=== PATIENT | female | born 1990 | race Two or more races ===

== ENCOUNTER 2016-06-07 11:44 | Inpatient (IN) | payer MEDICAID ==
[~2016-06-07] VITALS: Ht 154.9 cm; Wt 110.5 kg
--- NOTE | ~2016-06-07 | OR ---
PATIENT'S NAME: MI CRUZHANIE [facility] AGE: 26 Y [address] ROOM: [place] [address] LOCATION: GOBS ADMIT DATE: 06/07/2016 OR/Procedure Report DISCHARGE DATE: FAMILY PHYSICIAN: Lynette Herrera MD ATTENDING PHYSICIAN: Lynette Herrera SURGEON: Aaron Tolliver MD HONING MACHINE OPERATOR SEMIAUTOMATIC: DATE OF PROCEDURE: 06/07/2016 PROCEDURE PERFORMED: Normal spontaneous vaginal delivery with spontaneous rupture of membranes. ANESTHESIA: Just IV Sublimaze as needed. ESTIMATED BLOOD LOSS: 300 mL. COMPLICATIONS: None. Sponge and needle counts correct. NARRATIVE: The patient is a 26-year-old, 2, para 1 female who presented to my office with some intermittent contractions and leaking fluid since 9:30 am this morning. At the office, she was confirmed to be ruptured with a positive Nitrazine and positive pooling. She was GBS positive, so she was sent over to the hospital. The rest of her labs show the patient is O positive. Antibody screen negative. Rubella nonimmune. RPR nonreactive. Hepatitis B surface antigen negative, HIV negative. Urine drug screen, Gyne 3, and GC chlamydia all negative. The patient has had an uncomplicated . As I mentioned, she presented and had spontaneous rupture of membranes. She was sent over here. She did receive two doses of IV antibiotics. Her heart tones have been good. The patient progressed rapidly. Initially, did not want an epidural and then later on asked for one, but unfortunately it was moving too fast. We did not have anybody available, so she delivered without. She had received some Sublimaze. She had normal spontaneous vaginal delivery with actually just some mild Pitocin augmentation. Baby delivered occiput anterior. Anterior and posterior shoulders followed without difficulties and the rest of the baby followed. The cord was clamped and dad was allowed to cut the cord, and baby was placed on mom's abdomen. Attention turned back to mom and we just obtained venous blood for testing. Coag gases were not done as everything looked good. Cervix was visualized. It was intact as were vaginal sidewalls, perineum, and periurethral areas other than just some mild abrasion. Both mother and baby were in good condition. Sponge and needle counts were correct. PATIENT'S NAME: MI CRUZHANIE [facility] AGE: 26 Y [address] ROOM: [facility] [place], [place] [address] LOCATION: GOBS ADMIT DATE: 06/07/2016 OR/Procedure Report DISCHARGE DATE: FAMILY PHYSICIAN: Lynette Herrera MD ATTENDING PHYSICIAN: Lynette Herrera JAMIEMD RENEA MONTANEZ/modbrannon /[id number] d: 06/08/16 0019 t: 06/23/16 1500, OPERATIVE SUMMARY
[2016-06-07 12:52] LABS: BASOPHIL % 0.4 %; EOSINOPHIL % 0.4 %; HEMATOCRIT 32.6 % (33.0-46.0); HEMOGLOBIN 10.8 g/dL (11.0-15.0); IMMATURE GRANULOCYTE % 0.4 %; LYMPHOCYTE # 1.2 K/uL (0.8-4.0); LYMPHOCYTE % 15.1 %; MCH 30.6 pg (27.0-34.0); MCHC 33.1 gm/dL (32.0-36.5); MCV 92.4 fl (83.0-98.0); MONOCYTE # 0.4 K/uL (0.0-1.0); MONOCYTE % 4.7 %; NEUTROPHIL # (ANC) 6.5 K/uL (1.8-7.8); NRBC % 0 /100WBC (0-0.00); PLATELET COUNT 259 K/uL (150-450); RBC 3.53 M/uL (3.50-5.00); RDW-CV 13.9 % (11.9-14.6); WBC 8.2 K/uL (4.0-11.0)
[2016-06-07] MEDS ORDERED: PRENATAL 1+1)(P1 TAB PO (13:46)
[2016-06-07 22:16] LABS: BASOPHIL % 0.2 %; EOSINOPHIL % 0.1 %; HEMATOCRIT 27.8 % (33.0-46.0); HEMOGLOBIN 9.3 g/dL (11.0-15.0); IMMATURE GRANULOCYTE % 0.3 %; LYMPHOCYTE # 0.8 K/uL (0.8-4.0); LYMPHOCYTE % 6.3 %; MCH 31.2 pg (27.0-34.0); MCHC 33.5 gm/dL (32.0-36.5); MCV 93.3 fl (83.0-98.0); MONOCYTE # 0.6 K/uL (0.0-1.0); MONOCYTE % 4.5 %; MPV 10.4 fl (9.4-12.4); NEUTROPHIL # (ANC) 11.3 K/uL (1.8-7.8); NEUTROPHIL % 88.6 %; NRBC % 0 /100WBC (0-0.00); PLATELET COUNT 221 K/uL (150-450); RBC 2.98 M/uL (3.50-5.00); RDW-CV 13.8 % (11.9-14.6); WBC 12.8 K/uL (4.0-11.0)
--- NOTE | 2016-06-08 04:36 | NUR ---
vss, fundus firm, 1 finger above umbilicus, small-moderate flow. pt has passed a few larger clots when up to void. pt passed out in shower last night. 1 dose of methergine given and pt received 2 bags of pitocin. IV saline locked now. 1 perocet and 1 motrin given at 1923. 1 tylenol given at 0221 for a headache. certificate and paternity papers at bedside.
[2016-06-08 05:09] LABS: BASOPHIL % 0.3 %; EOSINOPHIL % 0.3 %; HEMATOCRIT 27.2 % (33.0-46.0); IMMATURE GRANULOCYTE # 0.1 K/uL (0.0-0.3); IMMATURE GRANULOCYTE % 0.4 %; LYMPHOCYTE # 1.4 K/uL (0.8-4.0); LYMPHOCYTE % 12.6 %; MCH 30.7 pg (27.0-34.0); MCHC 33.1 gm/dL (32.0-36.5); MCV 92.8 fl (83.0-98.0); MONOCYTE # 0.6 K/uL (0.0-1.0); MONOCYTE % 5.3 %; MPV 10.9 fl (9.4-12.4); NEUTROPHIL # (ANC) 9.2 K/uL (1.8-7.8); NEUTROPHIL % 81.1 %; NRBC % 0 /100WBC (0-0.00); PLATELET COUNT 224 K/uL (150-450); RBC 2.93 M/uL (3.50-5.00); RDW-CV 13.9 % (11.9-14.6); WBC 11.3 K/uL (4.0-11.0)
--- NOTE | 2016-06-08 14:29 | NUR ---
Met patient at bedside today. Introduced myself and explained my role with the CM department. Patient states they have all the necessary items for baby Leonel at home. She has an older daughter at home already. Instructed patient to contact insurance and notify them of baby's . I also explained to her that she only has 30 days to do this. I provided her with a list of community resources in the [place] area. I also reviewed signs and symptoms of post depression with her and left her reading material to refer to. She did experience post depression with her first child, so she states she is aware of what to watch for. Patient will likely discharge this weekend with no additional needs.
[2016-06-09] MEDS ORDERED: APNO TOP (12:29)
[2016-06-09] MEDS ORDERED: MOTRIN800 MG PO (12:30)
[2016-06-09] MEDS ORDERED: ACETAMINOPHEN325 MG PO (12:30)
[2016-06-09] MEDS ORDERED: LANSINOH7 GM TOP (12:30)
[2016-06-09] MEDS ORDERED: DERMOPLAST SPRA56 GM TOP (12:30)
[2016-06-09] MEDS ORDERED: PERCOCET 5-3251 EACH PO (12:32)
--- NOTE | 2016-06-09 14:24 | NUR ---
06/09/16 3491 I HAVE REVIEWED THE STUDENT NURSES DOCUMENTATION AND AGREE WITH HER DOCUMENTATION. RINKU DIHN
== END 2016-06-09 13:50 | disposition disaster alternative care site (69) | DRG 775 ==
LOC: GOBS 11:44 → EDSTATUS 06-18 11:42 → GOBS 06-18 11:43 → GOBM 06-18 14:59
PROVIDERS: Obstetrics & Gynecology Obstetrics; ADMIT Family Medicine
PROC: 10E0XZZ Delivery of Products of Conception, External Approach (ICD-10-PCS; principal; 2016-06-07)
DX: O99.824 Streptococcus B carrier state complicating childbirth (principal); O71.89 Other specified obstetric trauma; Z3A.38 38 weeks gestation of pregnancy; Z37.0 Single live birth
CPT/HCPCS: J2210; J2540; J2590; J3010; J7120